=== PATIENT | male | born 1940 | race Caucasian/White ===

== ENCOUNTER 2019-12-23 08:41 | Inpatient (IN) ==
--- NOTE | 2019-12-07 15:57 | PAT Medication Instructions ---
Medication Instructions Date of Service December 07, 2019 Home Medications allopurinol 100 mg PO QAM apixaban [Eliquis] 5 mg PO BID atorvastatin 40 mg PO QAM diltiazem HCl [Cartia XT] 240 mg PO QAM doxazosin [Cardura] 8 mg PO QAM folic acid-vit B6-vit B12 [Folbic] 1 tab PO QAM glimepiride 4 mg PO BID hydralazine 25 mg PO TID lisinopril 10 mg PO QAM metformin 1,000 mg PO BID ASK your prescriber and surgeon apixaban [Eliquis] 5 mg PO BID DO NOT take the morning of surgery folic acid-vit B6-vit B12 [Folbic] 1 tab PO QAM glimepiride 4 mg PO BID lisinopril 10 mg PO QAM metformin 1,000 mg PO BID Take morning of surgery With a small sip of water, OTHERWISE NOTHING TO EAT OR DRINK AFTER MIDNIGHT: allopurinol 100 mg PO QAM atorvastatin 40 mg PO QAM diltiazem HCl [Cartia XT] 240 mg PO QAM doxazosin [Cardura] 8 mg PO QAM hydralazine 25 mg PO TID Take evening before surgery glimepiride 4 mg PO BID hydralazine 25 mg PO TID metformin 1,000 mg PO BID Other Notes If you have any questions please call us at [phone] or [phone] or [phone] or [phone]
--- NOTE | 2019-12-08 13:05 | Anesthesiology Consultation ---
Date of Service December 08, 2019 Assessment & Plan (1) Encounter for pre-operative examination: Chart Review Chart Review: Acceptable Risk for Surgery (pending preop Covid testing) and Patient seen in Pre Admission Testing - Check BSG AM DOS Per PAT appointment 12/08/2019, patient resides in [facility] (close to home). Wears mask in public. Educated patient to follow up with surgeon's office regarding Covid testing. Educated on importance of self quarantining, social distancing and wearing mask in public both for the patient and household contacts. Pt seen by cardio 11/24/19= Seen for follow up testing and to discuss cardio clearance for back surgery. Pt "feels well- most recent stress and ECHO WNL. He is cleared at intermediate risk for surgery." pAfib- pt feels well. No new episodes of dizziness or lightheadedness. Takes Eliquis. EKG from 11/24/19 reviewed. EKG from early September 2019 also showed T wave abnormality in inferior leads- stress test negative for ischemia. Teaching & Discussion Pre-Anesthesia Teaching/Discussion Notes: Instructed NPO after midnight before surgery,except medications with 15 cc of water. Medication instructions provided according to the PAT guidelines. History Surgery Operation Date: 12/23/19 07:45 Proposed Procedures p L2-L3 Decompression, L1-L2 Fusion, L3-L5 Hardware Removal, Spinal Cord Monitoring - Angel King, Height/Weight Height: 5 ft 8 in Weight: 83.6 kg Allergies Allergy/AdvReac Type Severity Reaction Status Date / Time No Known Allergies Allergy Verified 12/02/19 11:18 Medications Home Medications Medication Instructions Recorded Confirmed Last Taken allopurinol 100 mg PO QAM 12/02/19 12/02/19 Unknown apixaban [Eliquis] 5 mg PO BID 12/02/19 12/02/19 Unknown atorvastatin 40 mg PO QAM 12/02/19 12/02/19 Unknown diltiazem HCl [Cartia XT] 240 mg PO QAM 12/02/19 12/02/19 Unknown doxazosin [Cardura] 8 mg PO QAM 12/02/19 12/02/19 Unknown folic acid-vit B6-vit B12 [Folbic] 1 tab PO QAM 12/02/19 12/02/19 Unknown glimepiride 4 mg PO BID 12/02/19 12/02/19 Unknown hydralazine 25 mg PO TID 12/02/19 12/02/19 Unknown lisinopril 10 mg PO QAM 12/02/19 12/02/19 Unknown metformin 1,000 mg PO BID 12/02/19 12/02/19 Unknown Past Medical History Medical History (Updated 12/08/19 @ 13:49 by Danisha Aleman PA-C) Atrial fibrillation REASON FOR ELIQUIS Diabetes mellitus, type 2 WELL CONTROLLED AND STABLE Gout NO RECENT FLARES Hyperlipidemia Hypertension Spinal stenosis Thyroid nodule BENIGN- UNDER OBSERVATION- STABLE IN SIZE Transient ischemic attack (TIA) 2-3 YEARS AGO (FELT DIZZY AT TIME OF EVENT/NO CURRENT PROBLEMS)- DIZZINESS 2 MONTHS AGO- THOUGHT TO BE DUE TO AFIB OR VERTIGO- HAD WORKUP- NO DX OF TIA AT THAT TIME Exercise / Class Metabolic Activity II 4-5 Yardwork/Stairs/Walk up hill (ONE FLIGHT OF STAIRS- NO CHEST PAIN OR SOB ) Past Family History Family History Mother Family history of diabetes mellitus Father Family hx of colon cancer Past Surgical History Surgical History Fusion of spine LUMBAR H/O sinus surgery POLYPS REMOVED History of colonoscopy History of repair of rotator cuff RT History of tooth extraction Hx of vasectomy Past Anesthesia History No Hx of Anesthesia Complications and No Family Hx of Anesthesia Complications History of PONV No Hx of PONV and No Hx of Motion Sickness Social History Smoking Status: Former smoker tobacco type: cigarettes Do You Dip or Chew Tobacco: No Smoking End Date: 1959 Hx Alcohol Use: Yes Alcohol type: beer and hard liquor alcohol intake frequency: a few times a month Hx Substance Use: No Review of Systems Mild ESTRELLITA per sleep study- no device needed Patient denies chest pain, shortness of breath, dyspnea on exertion, reflux, cough, wheezing, palpitations. No hx of seizures, DE. No hx of blood clots or blood transfusions Physical Exam Vital Signs VITALS BP 153/70 P 70 TEMP 98.5 SP02 98% RESP 16 Constitutional no acute distress ENMT Mouth: no TMJ clicking Thyromental Distance: > or= 3.5 Finger Breadths (3.5) Mallampati Class: III Full dentures on top and bottom Neck neck extension not limited Respiratory normal respiratory effort; no respiratory distress Auscultation: lungs clear to auscultation bilaterally; no wheezes Cardiovascular Rate/Rhythm: regular rate and regular rhythm Heart Sounds: no murmur Vessels: no carotid bruit Musculoskeletal Spine: no pain with cervical ROM Neurologic moves all extremities Psychiatric Orientation: alert Testing Laboratory Results 12/08/19 13:15 12/08/19 13:15 PT 11.9 Seconds (9.0-12.0) 12/08/19 13:15 INR 1.1 (0.9-1.1) 12/08/19 13:15 APTT 28.4 Seconds (21.0-31.0) 12/08/19 13:15 Hemoglobin A1c 6.9 % (4.5-5.6) H 12/08/19 13:15 Urine Color Dark Yellow 12/08/19 13:15 Urine Appearance Clear (Clear) 12/08/19 13:15 Urine pH 5.0 (4.5-7.5) 12/08/19 13:15 Ur Specific [place] 1.028 (1.000-1.030) 12/08/19 13:15 Urine Protein 1+ (Negative) H 12/08/19 13:15 Urine Glucose (UA) 1+ (Negative) H 12/08/19 13:15 Urine Ketones Trace (Negative) H 12/08/19 13:15 Urine Nitrite Negative (Negative) 12/08/19 13:15 Ur Leukocyte Esterase Negative (Negative) 12/08/19 13:15 Urine WBC (Auto) 1-5 /hpf (0-5) 12/08/19 13:15 Urine RBC (Auto) 0-4 /hpf (0-4) 12/08/19 13:15 U Hyaline Cast (Auto) 1-5 /lpf (0-5) 12/08/19 13:15 U Epithel Cells (Auto) 10-20 /lpf (0-5) H 12/08/19 13:15 Urine Bacteria (Auto) Negative (Negative) 12/08/19 13:15 Blood Type A Negative 12/08/19 13:15 Antibody Screen NEGATIVE 12/08/19 13:15 Electrocardiogram Date: 11/24/19 Sinus rhythm with first-degree AV block 69 bpm. T wave abnormality, consider inferior ischemia. (per 11/24/19 cardio note- EKG from early September 2019 also showed inferior T wave abnormality- had subsequent stress test later in September 2019- neg ative for ischemia) Chest X-Ray Date: 12/08/19 Findings: + NAD Echocardiogram Date: 11/18/19 EF: 60 to 65% LV Function: normal Other Findings: + LVH (Mild/concentric) Valvular Disease: + no significant valvular disease Left atrium is mildly dilated. Impaired left ventricular relaxation. Dilated ascending aorta. Stress Test Date: 09/29/19 Type: exercise (nuclear ) MPHR= 91%. Exercise stress nuclear study is normal. Normal SPECT perfusion imaging. No significant ischemia detected. No evidence of infarct. Stress EKG test results normal. Normal left ventricular systolic functionEF =55 to 60%. Recommendationsmedical treatment.
--- NOTE | 2019-12-08 13:37 | XRay Report ---
XR chest Pre-admission PA/Lat CLINICAL HISTORY: Preoperative evaluation. COMPARISON STUDY: Chest radiograph June 22, 2014. FINDINGS: Lung volumes are normal. Lungs are clear. There is no pneumothorax or pleural effusion. Car diac size is normal. Mediastinal contours are stable. Prominence of the right mediastinal contours un changed since prior exam There is no evidence for pulmonary edema. IMPRESSION: No acute cardiopulmonary findings. No change in appearance of the chest. ACT 112: Negative or not required by law. Electronically signed by: Tip Pang M.D. 12/08/2019 1:36 PM
[2019-12-08 14:13] LABS: Mean Corpuscular Hgb Conc 31.8 g/dL (32-36)
[2019-12-08 14:24] LABS: Hematocrit (blood only) 37.4 % (42-52); Hemoglobin 11.9 g/dL (14.0-18.0); Mean Corpuscular Hemoglobin 26.7 pg (25-34); RDW Coefficient of Variation 15.3 % (11.5-14.5); RDW Standard Deviation 47.1 fL (36.4-46.3); Red Blood Count 4.45 M/uL (4.7-6.1); White Blood Count 4.06 K/uL (4.8-10.8)
[2019-12-08 14:26] LABS: INR 1.1 (0.9-1.1); Partial Thromboplastin Time 28.4 Seconds (21.0-31.0); Prothrombin Time 11.9 Seconds (9.0-12.0)
[2019-12-08 14:51] LABS: Basophils # (auto) 0.02 K/uL (0-0.2); Basophils % (auto) 0.5 %; Echinocytes 1+; Eosinophils % (auto) 2.5 %; Giant Platelets 1+; Lymphocytes # (auto) 0.94 K/uL (1.2-3.4); Lymphocytes % (auto) 23.2 %; Mean Platelet Volume 11.8 fL (7.4-10.4); Monocytes # (auto) 0.37 K/uL (0.11-0.59); Monocytes % (auto) 9.1 %; Neutrophils # (auto) 2.63 K/uL (1.4-6.5); Neutrophils % (auto) 64.7 %; Platelet Count 153 K/uL (130-400); Platelet Estimate Normal (Normal)
[2019-12-08 14:54] LABS: BUN Creatinine Ratio 12.1 (10-20); Calcium 9.2 mg/dl (8.5-10.1); Creatinine Clr Calc Pharmacy 52.1 ml/min; Est GFR (Non-African American) 55.2; Potassium 3.9 mmol/L (3.5-5.1)
[2019-12-08 15:00] LABS: Appearance Urine Clear (Clear); Bacteria Urine Automated Negative (Negative); Bilirubin Urine Negative (Negative); Blood Urine Negative (Negative); Color Urine Dark Yellow; Glucose Urine UA 1+ (Negative); Ketones Urine Trace (Negative); Leukocyte Esterase Urine Negative (Negative); Nitrite Urine Negative (Negative); Protein Urine 1+ (Negative); RBC Urine Automated 0-4 /hpf (0-4); Specific Gravity Urine 1.028 (1.000-1.030); Urobilinogen Urine Negative (Negative)
[2019-12-09 05:37] LABS: Estimated Average Glucose 151 mg/dl; Hemoglobin A1C 6.9 % (4.5-5.6)
[~2019-12-23 08:41] MED LIST: ACETAMINOPHEN 500 MG TAB PO SCH; CeleBREX 200 MG CAP PO SCH; GABAPENTIN 300 MG CAP PO SCH; LR 15ML/HR IV SCH
[2019-12-23] MEDS ORDERED: ONDANSETRON INJ 2 MG/ML 2 ML VIAL IV PRN ×2 (10:23→15:23)
[2019-12-23] MEDS ORDERED: ePHEDrine sulfate 50 MG/ML AMP IV PRN (10:23)
[2019-12-23] MEDS ORDERED: PROMETHAZINE HCL 12.5 MG in SODIUM CHLORIDE 0.9% 50 ML IV PRN ×2 (10:23→15:23)
[2019-12-23] MEDS ORDERED: METOCLOPRAMIDE HCL INJ 5 MG/ML 2 ML VIAL IV PRN ×2 (10:23→15:23)
[2019-12-23] MEDS ORDERED: fentaNYL citrate 100 MCG/2 ML VIAL IV PRN (10:23)
[2019-12-23] MEDS ORDERED: ATROPINE SULFATE 0.1 MG/ML 10ML SYR IV PRN (10:23)
[2019-12-23] MEDS ORDERED: HYDROmorphone INJ 2 MG/ML SYR/VIAL IV PRN (10:23)
[2019-12-23] MEDS ORDERED: fentaNYL citrate 100 MCG/2 ML VIAL ONE (10:31)
--- NOTE | 2019-12-23 10:55 | History & Physical Bridge Note ---
Date of Service December 23, 2019 History & Physical Bridge Note I have examined the patient, reviewed the History & Physical and in the interval since the performance of the History & Physical I have noted the following changes of clinical significance: no changes noted
--- NOTE | 2019-12-23 10:57 | History & Physical Report ---
Date of Service December 23, 2019 Assessment & Plan (1) Neurogenic claudication due to lumbar spinal stenosis: L2-L3 decompression, L1-L3 fusion. L3 L5 hardware removal Present on Admission?: Yes History of Present Illness Chief Complaint: Back and bilateral leg pain Primary Care Provider: Mat Clinton This is a 79-year-old male who presents with chronic persistent back and leg pain. After failing course of nonoperative care is here for surgical intervention. Allergies Allergy/AdvReac Type Severity Reaction Status Date / Time Penicillins Allergy Unknown Unknown Verified 12/23/19 09:26 Home Medications Home Medications Medication Instructions Recorded Confirmed Type allopurinol 100 mg PO QAM 12/02/19 12/23/19 History apixaban [Eliquis] 5 mg PO BID 12/02/19 12/23/19 History atorvastatin 40 mg PO QAM 12/02/19 12/23/19 History diltiazem HCl [Cartia XT] 240 mg PO QAM 12/02/19 12/23/19 History doxazosin [Cardura] 8 mg PO QAM 12/02/19 12/23/19 History folic acid-vit B6-vit B12 [Folbic] 1 tab PO QAM 12/02/19 12/23/19 History glimepiride 4 mg PO BID 12/02/19 12/23/19 History hydralazine 25 mg PO TID 12/02/19 12/23/19 History lisinopril 10 mg PO QAM 12/02/19 12/23/19 History metformin 1,000 mg PO BID 12/02/19 12/23/19 History Past Med/Surg History Family History Mother Family history of diabetes mellitus Father Family hx of colon cancer Social History Smoking Status: Former smoker Smoking End Date: 1961; Second Hand Exposure: No; Do You Dip or Chew Tobacco: No; Tobacco Cessation Education Requested by Patient: No Hx Alcohol Use: Yes Alcohol type: beer and hard liquor Hx Substance Use: No Preferred Language: Turkish Appellate Court Clerk Required: No Beliefs That Will Affect Care: None Current Living Situation: Spouse Feels Safe at Home: Yes Safety Concerns: Feels Safe At This Time Physical Exam Physical Exam: Patient is alert and oriented neurologically intact. Heart regular rate and rhythm. Lungs clear to auscultation. Results & Data Vital Signs (Past 12 Hours) Vital Signs Temp Pulse Resp BP Pulse Ox 12/23/19 09:42 36.8 C 81 18 168/79 H 97
[2019-12-23] MEDS ORDERED: BUPIVACAINE 0.5 % 5 MG/1 ML MPF 30ML VIAL ONE (11:25)
[2019-12-23] MEDS ORDERED: EPINEPHrine INJ 1 MG/ML AMP ONE (11:26)
[2019-12-23] MEDS ORDERED: BACITRACIN INJ 50,000 UNIT VIAL ONE (11:26)
[2019-12-23] MEDS: CEFAZOLIN 2000MG 2,000 MG/15 ML SYR IV SCH ×3 (11:35→21:55)
[2019-12-23] MEDS ORDERED: HYDROmorphone INJ 2 MG/ML SYR/VIAL ONE (11:54)
[2019-12-23] MEDS ORDERED: FLOSEAL HEMOSTATIC MATRIX 10ML TOP ONE (12:31)
[2019-12-23] MEDS ORDERED: CEFAZOLIN 2000MG 2,000 MG/15 ML SYR IV ONE (12:48)
[2019-12-23] MEDS ORDERED: DEXAMETHASONE SOD INJ 4 MG/ML VIAL ONE (12:54)
[2019-12-23] MEDS ORDERED: LARYING-O-JET KIT (LTA) ONE (12:54)
[2019-12-23] MEDS ORDERED: ROCURONIUM BROMIDE 10 MG/ML 5 ML VIAL IV ONE (12:54)
[2019-12-23] MEDS ORDERED: LIDOCAINE HCL 2% 2 ML VIAL/AMP(20MG/ML) INFIL ONE (12:54)
[2019-12-23] MEDS ORDERED: PROPOFOL IV EMULSION 10 MG/ML 20 ML VIAL IV ONE (12:54)
[2019-12-23] MEDS ORDERED: GLYCOPYRROLATE 0.2 MG/ML VIAL ONE (12:54)
[2019-12-23] MEDS ORDERED: ONDANSETRON INJ 2 MG/ML 2 ML VIAL ONE (12:54)
[2019-12-23] MEDS ORDERED: NEOSTIGMINE METHYLSULFATE 1 MG/ML 10ML VIAL ONE (12:54)
--- NOTE | 2019-12-23 13:53 | Operative Report ---
Post Operative Report Pre & Post Diagnosis Operation Date: 12/23/19 10:35 Pre-Op Diagnosis: LUMBAR SPINAL STENOSIS W NEUROGENIC CLAUDICATION Post-Op Diagnosis: LUMBAR SPINAL STENOSIS W NEUROGENIC CLAUDICATION I identified the patient and participated in the time-out.: Yes Procedure Operation Date: 12/23/19 10:35 Actual Procedures #1 removal of posterior instrumentation L3-4 L4-5 per #2 exploration of fusion L3-4 L4-5 #3 lumbar decompression with bilateral medial facetectomies and foraminotomies L1-2 and L2-3. #4 posterior spinal fusion L1-L2 3. #5 placement posterior instrumentation L2-3 L3-4. #6 interbody fusion L2-3. #7 placement peek cage 9 x 26 mm at L2-3. #8 placement locally harvested morselized autograft in the posterior lateral gutters. #9 placement infuse collagen sponge, master graft and posterior gutters and ostial amp interbody space. Surgeon Angel King, [employer] Antoine Thompson Estimated Blood Loss 150 Findings Consistent with Post-Op Diagnosis Specimens None Indications This is a 79-year-old male who presents above-mentioned diagnosis after failing stents course of nonoperative care is here for dementia procedure. Description of Procedure Patient was met with identified informed consent obtained. Patient was then taken to the operative suite underwent an patient placed in a prone position on the Thom table on top of the Sudeep frame. All bony prominences well-padded eyes inspected to ensure no external pressure placed upon the. This point the lumbar spine is prepped and draped in sterile fashion. Sharp dissection with assistance of Bovie cautery was performed down to and exposing the lamina and transverse processes of L1-L2 and instrumentation L3-L4-L5 bilaterally. Then proceeded move the hardware bilaterally exploring the fusion mass noting it to be intact. Then performed a complete laminectomy of L to pressure laminectomy of L1 including bilateral medial facetectomies and foraminotomies addressing severe spinal stenosis. Pedicle screws were then placed in L2-L3 and L4 bilaterally with assistance of fluoroscopy and the proper sized pancho placed. By way of a transforaminal approach on the left complete discectomy of L2-3 was performed endplates curetted to subcortical bleeding bone and a 9 x 26 mm peek cage filled osteo-bone graft tapped position. Rods were then locked into final position bilaterally. The transverse processes of L1-L2-L3 burred to subcortical bleeding bone. Infuse collagen sponge master graft local autograft was then placed in the posterior gutters. 15 round BOY drain inserted. Incision was then closed with 1 Vicryl in the fascia 2-0 Vicryl subcutaneously and 4 Monocryl for final skin closure. Steri-Strips dressings placed. Patient waken taken to PACU stable condition. Please note spinal cord monitoring was utilized that the procedure no changes noted. Lastly Antoine Thompson was present at the entire procedure involved the patient positioning complex portions of the surgery and final skin closure. I attest to the content of the Intraoperative Record and any orders documented therein. Any exceptions are noted below.
--- NOTE | 2019-12-23 14:12 | Fluoroscopy Report ---
FL lumbar spine 2-3V HISTORY: 79 years-old Male L3-5 REMOVE HARDWARE/L2-3 DECOMPRESSION/L1-2 FUSION COMPARISON: Lumbar spine fluoroscopic images 07/06/2014 TECHNIQUE: 2 spot fluoroscopic images of the lumbar spine were obtained utilizing 14.3 seconds fluoro scopy time FINDINGS: Discectomy changes are redemonstrated at L4-L5. Discectomy changes are also noted at L2-L3. Posterior interbody pancho and screw fusion at what appears to be the L2-L4 levels. Interval removal of the L5 pe dicle screws. Multilevel spondylitic spurring with disc space narrowing. Hardware appears intact. No acute fracture identified. IMPRESSION: Fluoroscopic assistance as above. Please see operative report for further details. ACT 112: Negative or not required by law. The above report was generated using voice recognition software. It may contain grammatical, syntax o r spelling errors. Electronically signed by: Ramiro Madrigal M.D. 12/23/2019 2:10 PM
--- NOTE | 2019-12-23 14:53 | Anesthesiology Progress Note ---
Date of Service December 23, 2019 Anesthesia Post Procedure Vital Signs Vital Signs: Temp Pulse Pulse Resp BP BP Pulse Ox 12/23/19 14:45 74 12 147/66 H 95 12/23/19 14:35 75 14 146/67 H 98 12/23/19 14:25 85 12 149/72 H 99 12/23/19 14:18 36.1 C L 106 H 10 L 135/65 99 12/23/19 09:42 36.8 C 81 18 168/79 H 97 Transfer of Care Handoff Completed per policy Notes Mental Status: alert / awake / arousable and participated in evaluation Patient Amnestic to Procedure: Yes Nausea / Vomiting: adequately controlled Pain: adequately controlled Airway Patency, RR, SpO2: stable & adequate BP & HR: stable & adequate Hydration State: stable & adequate Anesthetic Complications: no major complications apparent
[2019-12-23] MEDS ORDERED: OXYCODONE HCL IR 5 MG TAB (IMMEDIATE RELEASE) PO PRN (15:23)
[2019-12-23] MEDS ORDERED: ACETAMINOPHEN 1,000 MG/100 ML VIAL IV PRN (15:23)
[2019-12-23] MEDS ORDERED: DO NOT ADMINISTER PNEUMOCOCCAL VACCINE PRN (15:23)
[2019-12-23] MEDS ORDERED: LORazepam 0.5 MG TAB PO PRN (15:23)
[2019-12-23] MEDS ORDERED: bisacodyL 10 MG SUPP PR PRN (15:23)
[2019-12-23] MEDS ORDERED: HYDROmorphone INJ 0.5 MG/0.5 ML SYR IV PRN (15:23)
[2019-12-23] MEDS ORDERED: TRAMADOL HCL 50 MG TABLET PO PRN (15:23)
[2019-12-23] MEDS ORDERED: DO NOT ADMINISTER FLU VACCINE PRN (15:23)
[2019-12-23] MEDS ORDERED: FAMOTIDINE 20 MG TAB PO PRN (15:23)
[2019-12-23] MEDS ORDERED: SOD PHOSPHATE/SOD BIPHOSPHATE ENEMA 132 ML BTL PR PRN (15:23)
[2019-12-23] MEDS ORDERED: NALOXONE HCL 0.4 MG/1 ML VIAL/CARP IV PRN (15:23)
[2019-12-23] MEDS ORDERED: MAGNESIUM HYDROXIDE SUSP 30 ML UDC PO PRN (15:23)
[2019-12-23] MEDS ORDERED: HYDROmorphone INJ 1 MG/ML SYRINGE IV PRN (15:23)
[2019-12-23] MEDS ORDERED: LORazepam 0.5 MG/1 ML VIAL IV PRN (15:23)
[2019-12-23] MEDS ORDERED: ONDANSETRON 4 MG OD TAB PO PRN (15:23)
[2019-12-23] MEDS ORDERED: ALUMINUM/MAGNESIUM SUSP 30 ML UDC PO PRN (15:23)
[2019-12-23] MEDS: SODIUM CHLORIDE 0.9% 1000ML 1,000 ML IV SCH (15:25)
--- NOTE | 2019-12-23 15:37 | Hospitalist Consultation ---
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 Continue his usual outpatient meds with diltiazem, doxazosin, hydralazine and lisinopril (of note this dose was wrong on his pre-op assessment and has been changed to 40mg. (3) Hyperlipidemia: Continue his usual atorvastatin 40mg PO daily (4) Gout: Continue allopurinol 100mg PO daily (5) Atrial fibrillation: Paroxysmal. Currently in NSR. Non-urgent to resume anticoagulation whenever recommended by surgery. (6) Diabetes mellitus, type 2: Pharmacy already consulted for glycemic management with basal bolus insulin Home meds - metformin and glimepiride on hold History of Present Illness Reason for Consultation: Medical Management Attending Physician: Angel King, DO History of Present Illness Antoine Butler is a 79 year old male who here for elective spinal surgery under Dr King for lumbar spinal stenosis with neurogenic claudication. The patient reports doing well post operatively. No concerns or questions at this time. He has not had known atrial fibrillation for some time. Allergies Allergy/AdvReac Type Severity Reaction Status Date / Time Penicillins Allergy Unknown Unknown Verified 12/23/19 09:26 Home Medications Home Medications Medication Instructions Recorded Confirmed Type allopurinol 100 mg PO QAM 12/02/19 12/23/19 History apixaban [Eliquis] 5 mg PO BID 12/02/19 12/23/19 History atorvastatin 40 mg PO QAM 12/02/19 12/23/19 History diltiazem HCl [Cartia XT] 240 mg PO QAM 12/02/19 12/23/19 History doxazosin [Cardura] 8 mg PO QAM 12/02/19 12/23/19 History folic acid-vit B6-vit B12 [Folbic] 1 tab PO QAM 12/02/19 12/23/19 History glimepiride 4 mg PO BID 12/02/19 12/23/19 History hydralazine 25 mg PO TID 12/02/19 12/23/19 History metformin 1,000 mg PO BID 12/02/19 12/23/19 History lisinopril 40 mg PO QAM 12/23/19 12/23/19 History oxycodone 5 mg PO Q6H PRN #20 tab 12/24/19 Rx tramadol 50 mg PO Q6H PRN #20 tab 12/24/19 Rx Patient History Medical History Atrial fibrillation REASON FOR ELIQUIS Diabetes mellitus, type 2 WELL CONTROLLED AND STABLE Gout NO RECENT FLARES Hyperlipidemia Hypertension Spinal stenosis Thyroid nodule BENIGN- UNDER OBSERVATION- STABLE IN SIZE Transient ischemic attack (TIA) 2-3 YEARS AGO (FELT DIZZY AT TIME OF EVENT/NO CURRENT PROBLEMS)- DIZZINESS 2 MONTHS AGO- THOUGHT TO BE DUE TO AFIB OR VERTIGO- HAD WORKUP- NO DX OF TIA AT THAT TIME Surgical History Fusion of spine LUMBAR H/O sinus surgery POLYPS REMOVED History of colonoscopy History of repair of rotator cuff RT History of tooth extraction Hx of vasectomy Family History Mother Family history of diabetes mellitus Father Family hx of colon cancer Social History Smoking Status: Former smoker Smoking End Date: 1961; Second Hand Exposure: No; Do You Dip or Chew Tobacco: No; Tobacco Cessation Education Requested by Patient: No Hx Alcohol Use: Yes Alcohol type: beer and hard liquor Hx Substance Use: No Preferred Language: Venezuelan Cork Cutter Required: No Beliefs That Will Affect Care: None Current Living Situation: Spouse Feels Safe at Home: Yes Safety Concerns: Feels Safe At This Time Review of Systems Review of Systems: All systems reviewed & are unremarkable except as noted in HPI & below Physical Exam Constitutional: WD/WN, vitals as above Eyes: + anicteric sclerae; normal pupil size Neck: trachea midline, no thyromegaly Respiratory: normal respiratory effort, lungs clear to auscultation Cardiovascular: RRR, no murmur, no edema Gastrointestinal (Abdomen): normal bowel sounds, soft, nontender, no hepatosplenomegaly Musculoskeletal: no cyanosis or clubbing, extremities motor strength 5/5 Skin: no rashes, warm and dry Neurologic: moves all extremities and awake Psychiatric: A+Ox3, euthymic affect Results & Data Results & Data ([facility]) Vital Signs (Past 12 Hours) Vital Signs Temp Pulse Pulse Resp BP BP Pulse Ox 12/23/19 15:10 68 12 138/66 95 12/23/19 15:05 36.9 C 70 14 137/62 96 12/23/19 14:55 70 17 143/66 H 93 12/23/19 14:45 74 12 147/66 H 95 12/23/19 14:35 75 14 146/67 H 98 12/23/19 14:25 85 12 149/72 H 99 12/23/19 14:18 36.1 C L 106 H 10 L 135/65 99 12/23/19 09:42 36.8 C 81 18 168/79 H 97 PG Care Time/CCT Total # of Minutes Spent Total Time Spent with Patient: Total time spent is greater than 50% in coordination of care (as documented) at patient's floor/unit and/or counseling patient: Coding Level of Care Code 23156 Inpt Consult Level 3 Diagnoses Neurogenic claudication due to lumbar spinal stenosis M48.062 Hypertension I10 Hyperlipidemia E78.5 Gout M10.9 Atrial fibrillation I48.0 Atrial fibrillation type: paroxysmal Diabetes mellitus, type 2 E11.9 (1) Atrial fibrillation Atrial fibrillation type: paroxysmal Qualified Code(s): I48.0 - Paroxysmal atrial fibrillation
[2019-12-23] MEDS ORDERED: PHARMACY GLYCEMIC MGMT CONSULT SCH (15:55)
[2019-12-23] MEDS ORDERED: NovoLIN-N (NPH) PER UNIT CHARGE SQ ONE ×3 (16:30→21:00)
--- NOTE | 2019-12-23 16:38 | Pharmacy Report ---
Pharmacy Glycemic Short Note 2 - Date of Service December 23, 2019 - Glycemic Short BSG Results (Last 24 hours): 12/23/19 12/23/19 09:05 14:23 POC Glucose 211 H 224 H OUTPATIENT ANTIDIABETIC REGIMEN: * glimepiride 4mg PO BID * metformin 1gm PO BID * A1c = 6.9% 12/08/19 ASSESSMENT: * Type 2 diabetic admitted for lumbar spinal stenosis, claudication - taken to OR today for lumbar spinal decompression/fusion * Recent A1c reflects good control with out-pt regimen of oral hypoglycemics, however patient will be managed with SQ basal/bolus insulin regimen initially in light of surgical stressors and recent high dose IV dexamethasone administration (10mg IV given in OR by Anesthesia per RN report) * Patient was hyperglycemic on admission despite being NPO. Will utilize NPH 0.4units/kg x 1 to combat insulin deficiency and expected insulin resistance associated with steroid. Will also give NPH this evening as dexamethasone effects likely to persist for 24-36 hrs. * Novolog doses will be based upon weight and "severe" stress initially. Overnight checks will be utilized as pt may be prone to severe hyperglycemia. PLAN FOR INPATIENT GLYCEMIC CONTROL: * Hold outpatient oral diabetes medications (metformin, glimepiride) * Basal insulin * NPH 33 units x 1 STAT, then 7 units x 1 HS * Bolus insulin * NovoLog per scale ACHS and at 0000 + 0400 tonight * Goal Range: Low 110 mg/dL - High 140 mg/dL * Correction Factor: 20 mg/dL/unit * Nutritional / Prandial insulin per carb ratio of 1 unit per 6 grams CHO consumed PLAN FOR DISCHARGE: * may resume outpt regimen if no contraindications present at time of discharge
[2019-12-23] MEDS: INSULIN ASPART 100 UNITS/ML 3 ML PEN SC SCH ×2 (18:06→20:40)
[2019-12-23] MEDS: DOCUSATE SODIUM/SENNA 50/8.6MG TAB PO SCH (20:41)
[2019-12-23] MEDS ORDERED: GLIMEPIRIDE 2 MG TAB PO SCH (21:00)
[2019-12-24] MEDS: SODIUM CHLORIDE 0.9% 1000ML 1,000 ML IV SCH (02:39)
[2019-12-24] MEDS: INSULIN ASPART 100 UNITS/ML 3 ML PEN SC SCH ×6 (04:00→21:20)
[2019-12-24] MEDS: CEFAZOLIN 2000MG 2,000 MG/15 ML SYR IV SCH (05:52)
[2019-12-24] MEDS: POLYETHYLENE (MIRALAX) 17 GM PACK PO SCH ×4 (05:52→23:25)
[2019-12-24 06:16] LABS: Hematocrit (blood only) 30.6 % (42-52); Hemoglobin 9.9 g/dL (14.0-18.0); Immature Granulocytes # (auto) 0.01 K/uL (0.00-0.02); Immature Granulocytes % (auto) 0.2 %; Lymphocytes # (auto) 0.38 K/uL (1.2-3.4); Lymphocytes % (auto) 5.9 %; Mean Corpuscular Hemoglobin 27.3 pg (25-34); Mean Corpuscular Hgb Conc 32.4 g/dL (32-36); Mean Corpuscular Volume 84.3 fL (80-100); Mean Platelet Volume 11.2 fL (7.4-10.4); Monocytes # (auto) 0.35 K/uL (0.11-0.59); Monocytes % (auto) 5.5 %; Neutrophils # (auto) 5.66 K/uL (1.4-6.5); Neutrophils % (auto) 88.4 %; Platelet Count 127 K/uL (130-400); RDW Coefficient of Variation 15.4 % (11.5-14.5); RDW Standard Deviation 47.7 fL (36.4-46.3); Red Blood Count 3.63 M/uL (4.7-6.1)
[2019-12-24 06:49] LABS: BUN Creatinine Ratio 12.9 (10-20); Calcium 8.4 mg/dl (8.5-10.1); Creatinine Clr Calc Pharmacy 57.2 ml/min; Est GFR (African American) 71.5; Est GFR (Non-African American) 61.7; Potassium 3.3 mmol/L (3.5-5.1)
--- NOTE | 2019-12-24 07:44 | Orthopedic Progress Note ---
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 Present on Admission?: Yes Admission and Anticipated Discharge Date Admission Date: December 23, 2019 Subjective Back symptoms controlled leg pain improved. Physical Exam Physical Exam: Patient is in a chair at the bedside is good strength testing. Appears comfortable. Results & Data ([facility]) Vital Signs (Past 12 Hours) Vital Signs Temp Pulse Pulse Resp BP Pulse Ox 12/24/19 07:19 36.5 C 76 16 142/72 H 96 12/24/19 03:55 36.4 C L 67 16 145/69 H 99 12/23/19 23:52 36.5 C 69 16 134/69 99 12/23/19 20:40 36.4 C L 87 18 149/77 H 99
[2019-12-24] MEDS: dilTIAZem HCL 240 MG CAPCR PO SCH (08:25)
[2019-12-24] MEDS: ATORVASTATIN 40 MG TAB PO SCH (08:25)
[2019-12-24] MEDS: allopurinoL 100 MG TAB PO SCH (08:25)
[2019-12-24] MEDS: VITAMIN B COMPLEX TAB PO SCH (08:26)
[2019-12-24] MEDS: DOXAZosin MESYLATE 4 MG TAB PO SCH (08:26)
[2019-12-24] MEDS ORDERED: POTASSIUM CHLORIDE 20 MEQ TABCR PO ONE (08:30)
[2019-12-24] MEDS: DEXAMETHASONE SOD PHOSPHATE 8 MG in SYRINGE 0 ML IV SCH (08:41)
--- NOTE | 2019-12-24 08:52 | Pharmacy Report ---
Pharmacy Glycemic Short Note 2 - Date of Service December 24, 2019 - Glycemic Short BSG Results (Last 24 hours): 12/23/19 12/23/19 12/23/19 09:05 14:23 17:23 Glucose POC Glucose 211 H 224 H 290 H 12/23/19 12/23/19 12/24/19 20:37 23:55 05:48 Glucose 100 H POC Glucose 280 H 209 H 12/24/19 08:06 Glucose POC Glucose 153 H OUTPATIENT ANTIDIABETIC REGIMEN: * glimepiride 4mg PO BID * metformin 1gm PO BID * A1c = 6.9% 12/08/19 ASSESSMENT: * MH is now POD #1 s/p lumbar decompression/fusion * received intraoperative IV dexamethasone - covered with 40 units of NPH last evening * BSGs elevated throughout the day yesterday - ranging 209-290 mg/dL * Received 26 units of prandial/correctional insulin last evening starting with dinner * Fasting BSG this morning of 153 mg/dL * Dexamethasone 8 mg IV daily initiated to start this morning * Will schedule daily dose of NPH to be given with IV dexamethasone * Maintain aggressive Novolog at this time PLAN FOR INPATIENT GLYCEMIC CONTROL: * Hold outpatient oral diabetes medications (metformin, glimepiride) * Basal insulin * NPH 30 units qAM to be given with dexamethasone (Of note: NPH given 2 hours after dexamethasone this morning) * Bolus insulin - continue * NovoLog per scale ACHS and at 0000 + 0400 tonight * Goal Range: Low 110 mg/dL - High 140 mg/dL * Correction Factor: 20 mg/dL/unit * Nutritional / Prandial insulin per carb ratio of 1 unit per 6 grams CHO consumed PLAN FOR DISCHARGE: * may resume outpt regimen if no contraindications present at time of discharge
[2019-12-24] MEDS ORDERED: lisinopriL 10 MG TAB PO SCH (09:00)
[2019-12-24] MEDS ORDERED: INSULIN HUMAN NPH SC ONE (09:00)
[2019-12-24] MEDS: lisinopriL 40 MG TAB PO SCH (10:39)
--- NOTE | 2019-12-24 14:23 | Hospitalist Progress Note ---
Date of Service December 24, 2019 Assessment & Plan (1) Neurogenic claudication due to lumbar spinal stenosis: s/p lumbar spinal decompression, removal of hardware, L1-3 lumbar spinal fusion 12/23/2019 Pain control, dvt proph per primary (2) Hypertension: Stable. Continue usual outpatient meds with diltiazem, doxazosin, hydralazine and lisinopril (of note this dose was wrong on his pre-op assessment and has been changed to 40mg. (3) Hyperlipidemia: Continue his usual atorvastatin 40mg PO daily (4) Gout: Continue allopurinol 100mg PO daily (5) Atrial fibrillation: Paroxysmal. Currently in NSR. Non-urgent to resume anticoagulation whenever recommended by surgery. (6) Diabetes mellitus, type 2: Pharmacy already consulted for glycemic management with basal bolus insulin Home meds - metformin and glimepiride on hold (7) Thrombocytopenia: mild - platelets 127 - repeat tomorrow morning (8) Acute blood loss anemia: Hgb 9.9 - continue to monitor CBC am (9) Hypokalemia: Potassium 3.3 this morning - replaced BMP tomorrow morning Admission and Anticipated Discharge Date Admission Date: December 23, 2019 Subjective Mr. Butler feels well, no complaints. Participated in physical therapy and it went well. ROS Constitutional: no chills, aches, sweats or fever Respiratory: no sob,cough, sputum, or wheezing Cardiac: no chest pain, palpitations, edema, orthopnea or lightheadedness GI: no abdominal pain, nausea, vomiting, diarrhea or constipation : no dysuria or hesitancy Extremities: no joint pain or weakness Skin: no rash All other systems reviewed and negative Physical Exam Physical Exam: General: no distress Eyes: normal inspection, PERLL Respiratory: chest non tender, clear to auscultation, normal breath sounds, no respiratory distress, no accessory muscle use Cardiac: regular rate and rhythm, no rub or gallop, no murmur, no edema, no jvd GI/: active bowel sounds, no abd pain or tenderness, soft, non distended Extremities: normal range of motion, normal strength, non tender Neuro/Psych: alert and oriented x 3, normal mood and affect Skin: normal color, dry Results & Data Results & Data ([facility]) Vital Signs (Past 12 Hours) Vital Signs Temp Pulse Pulse Resp BP Pulse Ox 12/24/19 11:43 36.4 C L 81 16 147/74 H 97 12/24/19 07:19 36.5 C 76 16 142/72 H 96 12/24/19 03:55 36.4 C L 67 16 145/69 H 99 PG Care Time/CCT Total # of Minutes Spent Total Time Spent with Patient: Total time spent is greater than 50% in coordination of care (as documented) at patient's floor/unit and/or counseling patient: Coding Level of Care Code 84306 Subseq Hosp Care Lvl 2 Diagnoses Neurogenic claudication due to lumbar spinal stenosis M48.062 Hypertension I10 Hyperlipidemia E78.5 Gout M10.9 Atrial fibrillation I48.0 Atrial fibrillation type: paroxysmal Diabetes mellitus, type 2 E11.9 Thrombocytopenia D69.6 Acute blood loss anemia D62 Hypokalemia E87.6 (1) Atrial fibrillation Atrial fibrillation type: paroxysmal Qualified Code(s): I48.0 - Paroxysmal atrial fibrillation
[2019-12-24 15:18] LABS: Calcium 8.6 mg/dl (8.5-10.1); Creatinine Clr Calc Pharmacy 45.3 ml/min; Est GFR (African American) 53.9; Est GFR (Non-African American) 46.5; Potassium 3.9 mmol/L (3.5-5.1)
[2019-12-24] MEDS: DOCUSATE SODIUM/SENNA 50/8.6MG TAB PO SCH (21:17)
[2019-12-25 05:29] LABS: Hematocrit (blood only) 28.9 % (42-52); Hemoglobin 9.2 g/dL (14.0-18.0); Immature Granulocytes # (auto) 0.01 K/uL (0.00-0.02); Immature Granulocytes % (auto) 0.1 %; Lymphocytes # (auto) 0.54 K/uL (1.2-3.4); Lymphocytes % (auto) 7.2 %; Mean Corpuscular Hemoglobin 26.7 pg (25-34); Mean Corpuscular Hgb Conc 31.8 g/dL (32-36); Mean Platelet Volume 11.8 fL (7.4-10.4); Monocytes # (auto) 0.43 K/uL (0.11-0.59); Monocytes % (auto) 5.7 %; Neutrophils # (auto) 6.53 K/uL (1.4-6.5); Platelet Count 128 K/uL (130-400); RDW Coefficient of Variation 15.9 % (11.5-14.5); Red Blood Count 3.44 M/uL (4.7-6.1); White Blood Count 7.51 K/uL (4.8-10.8)
[2019-12-25] MEDS: POLYETHYLENE (MIRALAX) 17 GM PACK PO SCH ×3 (05:37→17:28)
[2019-12-25] MEDS: ACETAMINOPHEN 500 MG TAB PO PRN ×2 (05:39→12:24)
[2019-12-25] MEDS: ATORVASTATIN 40 MG TAB PO SCH (08:19)
[2019-12-25] MEDS: allopurinoL 100 MG TAB PO SCH (08:19)
[2019-12-25] MEDS: DOXAZosin MESYLATE 4 MG TAB PO SCH (08:19)
[2019-12-25] MEDS: DEXAMETHASONE SOD PHOSPHATE 8 MG in SYRINGE 0 ML IV SCH (08:20)
[2019-12-25] MEDS: dilTIAZem HCL 240 MG CAPCR PO SCH (08:20)
[2019-12-25] MEDS: VITAMIN B COMPLEX TAB PO SCH (08:21)
[2019-12-25] MEDS: lisinopriL 40 MG TAB PO SCH (08:21)
[2019-12-25] MEDS: INSULIN ASPART 100 UNITS/ML 3 ML PEN SC SCH ×4 (08:35→21:11)
[2019-12-25] MEDS ORDERED: INSULIN HUMAN NPH SC SCH ×3 (09:00→17:00)
--- NOTE | 2019-12-25 09:43 | Pharmacy Report ---
Pharmacy Glycemic Short Note 2 - Date of Service December 25, 2019 - Glycemic Short BSG Results (Last 24 hours): 12/24/19 12/24/19 12/24/19 03:57 12:12 14:40 Glucose 217 H POC Glucose 112 H 202 H 12/24/19 12/24/19 12/25/19 17:17 20:36 08:08 Glucose POC Glucose 135 H 132 H 193 H OUTPATIENT ANTIDIABETIC REGIMEN: * glimepiride 4mg PO BID * metformin 1gm PO BID * A1c = 6.9% 12/08/19 ASSESSMENT: * MH is now POD #2 s/p lumbar decompression/fusion * BSGs ranging 100-202 mg/dL yesterday * Received 57 units of insulin (30 units of NPH, 27 units of prandial/correctional) * Fasting BSG this morning of 193 mg/dL * Continues to receive dexamethasone 8 mg IV daily * Continue daily dose of NPH to be given with IV dexamethasone * Maintain aggressive Novolog at this time - will leave with evening RPH to assess for further tightening of Novolog * Pre-lunch BSG of 281 mg/dL today - will order NPH scale this evening to give additional basal if BSGs still elevated PLAN FOR INPATIENT GLYCEMIC CONTROL: * Hold outpatient oral diabetes medications (metformin, glimepiride) * Basal insulin * NPH 33 units (0.4 unit/kg) qAM to be given with dexamethasone * NPH scale this evening with dinner (0-10 units: see EHR for details) * Bolus insulin - continue * NovoLog per scale ACHS and at 0000 + 0400 tonight * Goal Range: Low 110 mg/dL - High 140 mg/dL * Correction Factor: 20 mg/dL/unit * Nutritional / Prandial insulin per carb ratio of 1 unit per 6 grams CHO consumed PLAN FOR DISCHARGE: * may resume outpt regimen if no contraindications present at time of discharge
[2019-12-25] MEDS ORDERED: DEXAMETHASONE SOD PHOSPHATE 10 MG in SYRINGE 0 ML IV STA (10:32)
--- NOTE | 2019-12-25 10:36 | Orthopedic Progress Note ---
Date of Service December 25, 2019 Assessment & Plan (1) Neurogenic claudication due to lumbar spinal stenosis: Patient is progressing appropriately. BOY drain decreasing probably. Possible discharge home tomorrow. Present on Admission?: Yes Admission and Anticipated Discharge Date Admission Date: December 23, 2019 Subjective Back pain is controlled leg pain markedly improved. Physical Exam Physical Exam: Patient is in the chair at the bedside. Is good strength testing. Appears comfortable. Results & Data ([facility]) Vital Signs (Past 12 Hours) Vital Signs Temp Pulse Resp BP Pulse Ox 12/25/19 06:31 36.7 C 66 16 137/71 99 12/24/19 23:06 36.6 C 67 16 142/61 H 95
[2019-12-25] MEDS ORDERED: GABAPENTIN 300 MG CAP PO SCH (14:00)
[2019-12-25] MEDS: DOCUSATE SODIUM/SENNA 50/8.6MG TAB PO SCH (21:05)
[2019-12-26] MEDS: POLYETHYLENE (MIRALAX) 17 GM PACK PO SCH ×2 (00:03→06:14)
[2019-12-26] MEDS: ACETAMINOPHEN 500 MG TAB PO PRN (07:15)
[2019-12-26] MEDS: ATORVASTATIN 40 MG TAB PO SCH (08:32)
[2019-12-26] MEDS: dilTIAZem HCL 240 MG CAPCR PO SCH (08:32)
[2019-12-26] MEDS: lisinopriL 40 MG TAB PO SCH (08:33)
[2019-12-26] MEDS: VITAMIN B COMPLEX TAB PO SCH (08:33)
[2019-12-26] MEDS: DOXAZosin MESYLATE 4 MG TAB PO SCH (08:33)
[2019-12-26] MEDS: allopurinoL 100 MG TAB PO SCH (08:33)
[2019-12-26] MEDS: INSULIN ASPART 100 UNITS/ML 3 ML PEN SC SCH (08:34)
[2019-12-26] MEDS: DEXAMETHASONE SOD PHOSPHATE 8 MG in SYRINGE 0 ML IV SCH ×2 (08:36→09:12)
[2019-12-26] MEDS ORDERED: INSULIN HUMAN NPH SC SCH (09:00)
--- NOTE | 2019-12-26 09:46 | Discharge Summary ---
Date of Service December 26, 2019 Admission HPI Per Admitting Provider This is a 79-year-old male who presents with chronic persistent back and leg pain. After failing course of nonoperative care is here for surgical intervention. Principal Diagnosis Lumbar spinal stenosis with neurogenic claudication Discharge Data Allergies Allergy/AdvReac Type Severity Reaction Status Date / Time Penicillins Allergy Unknown Unknown Verified 12/23/19 09:26 Consultations 12/23/19 15:23 Consult Case Management - Discharge Planning Routine Consult Hospitalist Routine Procedures Performed Operation Date: 12/23/19 10:35 Actual Procedures p L2-L3 Decompression, L1-L2 Fusion, Interbody fusion L2-3, Spinal Cord Monitoring - Angel King DO s L3-L5 Hardware Removal, - Angel King DO Ordered Studies 12/23/19 10:35 FL fluoroscopy <1hr Routine FL lumbar spine 2-3V Routine Hospital Course (1) Neurogenic claudication due to lumbar spinal stenosis: Patient with multilevel lumbar decompression fusion tolerated as well as taken to orthopedic for postoperative. Postop day 1 he was up and ambulating leg pain improved progressed to postop day #2. Postop day #3 excellent strength testing BOY drain decreased probably. Pain well controlled. Subsequently disc harged home. Discharge orders and instructions from the chart for further review. Total Time Total Time Spent Total Time Spent (In Minutes): 20 minutes Discharge Plan Discharge Items Patient Disposition: Home - Self-Care Reason For Visit: LUMBAR SPINAL STENOSIS W NEUROGENIC CLAUDICATION Discharge Diagnosis: Lumbar spinal stenosis with neurogenic claudication Activity: As commented below Non-emergency contact: Primary Care Provider Call non-emergency contact if: you have any medication questions Follow-up/Referrals: Mat Clinton M.D. [Primary Care Provider] - Diet: Regular Addtl Attending Provider Instructions: ACTIVITY RECOMMENDATIONS: SELF CARE INSTRUCTIONS AFTER THORACIC/LUMBAR FUSIONS 1. You may walk to your tolerance. It is good exercise for your legs and back. Expect some back and intermittent leg aches and pains. 2. You may perform "counter-top" level activities (make a sandwich, miguel angel with a project, etc.). 3. No bending or lifting of more than 10 pounds or back twisting of any nature (roll like a log when turning in bed). 4. You may ride in a car for 20-30 minutes at a time. No driving until after your first visit with your doctor. 5. Frequent changes of position and restricting sitting to 30 minutes at a time will help limit the amount of back spasms and stiffness you may experience. 6. You may discontinue the use of ambulatory aids (cane, crutches, etc.) once your strength and confidence allow. 7. You may alternative medicine practitioner the shower and let water strike your incision when you arrive home at least once daily. Do not take a tub bath, sit in a hot tub or go into a swimming pool until after your first recheck in the office. SPECIAL CARE INSTRUCTIONS: VERY IMPORTANT TO READ AND REVIEW A. Your surgical incision has been closed with a cosmetic suture under the skin that will dissolve in about 6 weeks. In 14 days, you can use a pair of clean scissors and cut the suture that is left outside of the skin at the ends of your incision. 1. The small skin tapes can be removed 7 days after surgery if they have not fallen off by that point. 2. You may keep the wound open to air as much as possible to promote healing after post-op day number 5 unless told otherwise by your doctor. 3. If you think the wound looks like it is becoming infected (redness or worsening drainage) and/or you are experiencing fever, chill or worsening back pain and muscle spasms, contact the office so that we may evaluate you as soon as possible. B. Complications are uncommon, but please contact us if you have any signs or symptoms of: 1. wound infection (fever higher than 102.5 degrees F, redness, separation of wound, drainage, or increasing pain from the incision) 2. blood clots in legs (pain, swelling, redness and warmth in legs) 3. urinary tract infection (fever higher than 102.5 degrees F, burning upon urination or increased frequency of urination) 4. nerve problems (inability to walk on your toes or heels, numbness, loss of bowel or bladder control) 5. any other symptoms that concern you C. Please call the office at if you have any concerns or questions about your operation or recovery. D. No smoking! Smoking drastically decreases the chance of a solid fusion. E. Do not take any anti-inflammatory medications (Indocin, Advil, Motrin, Aspirin, Naprosyn, etc.) as these may inhibit the chance of a solid fusion. Tylenol is okay to take for pain. MANAGING PAIN AFTER SPINAL SURGERY 1. Narcotic medication is intended for short-term use and will be provided for surgical pain. Surgical pain usually lasts for a period of 4-6 weeks. Narcotic medication includes Percocet, Vicodin, Darvocet, Tylenol #3 or Lortab. 2. Longer-term pain is more appropriately treated with non-narcotic medication such as Tylenol ES. 3. Muscle spasm is not appropriately treated with narcotics. Muscle relaxers such as Soma, Flexeril or Skelaxin can be used along with Tylenol ES. 4. Remember that we all live with some "aches and pains". This is not unusual or uncommon after an injury or as we get older. a. Back pain is expected and may include muscle spasms for 4 to 6 weeks aft er surgery. The pain should gradually improve. If the pain worsens for no apparent reason, please contact the office. b. Intermittent leg pain may also be experienced and should not be concerned about unless it worsens for no apparent reason. If so, please contact the office. 5. We will provide appropriate medication within the normal guidelines of their prescribed use. We will also be very cautious and aware of potential abuse and extended duration of patients' medication needs. a. Pain medications are for your comfort and to assist with sleep and rest so that the tissue can heal. They are not provided in order to return to normal activity and should not be used through the day. To do so or worsening pain at night can result from ongoing tissue damage and development of tolerance to the prescribed medicine. 6. Please allow 2-3 days to process refills. Prescriptions will not be mailed but must be picked up at the office. FOLLOW UP VISIT: Keep your scheduled follow-up appointment. Any questions, please call the office at . Pending Studies at Discharge: No Stand-Alone Forms: My [employer], Smoking Cessation Medications and DC Order Prescriptions: New tramadol 50 mg tablet 50 mg PO Q6H PRN (Reason: pain, moderate) Qty: 20 RF: 0 oxycodone 5 mg tablet 5 mg PO Q6H PRN (Reason: pain, severe) Qty: 20 RF: 0 Continued atorvastatin 40 mg Tablet 40 mg PO QAM RF: 0 diltiazem HCl [Cartia XT] 240 mg Capsule,Extended Release 24hr 240 mg PO QAM RF: 0 hydralazine 25 mg Tablet 25 mg PO TID RF: 0 allopurinol 100 mg Tablet 100 mg PO QAM RF: 0 doxazosin [Cardura] 8 mg Tablet 8 mg PO QAM RF: 0 metformin 1,000 mg Tablet 1,000 mg PO BID RF: 0 glimepiride 4 mg Tablet 4 mg PO BID RF: 0 Folbic 2.5-25-2 mg Tablet 1 tab PO QAM RF: 0 Eliquis 5 mg Tablet 5 mg PO BID RF: 0 lisinopril 40 mg tablet 40 mg PO QAM RF: 0 Discharge Orders: Discharge Order (Routine); Ordered 12/26/19 Ordered By: Angel Ramirez/Other Patient Handouts: Managing Type 2 Diabetes Admission Data Admit Date/Time: 12/23/19 14:23 Attending Provider: Angel King Admit Provider: Angel King Primary Care Provider: Mat Clinton Other Providers: Arnel Chavez
== END 2019-12-26 11:06 | disposition home or self-care (01) | DRG 454 ==
LOC: ASU 08:41 → 3E 14:23